=== PATIENT | male | born 1960 | race African-American/Black ===

== ENCOUNTER → 2017-01-11 07:36 | Outpatient (CLI) | payer BC, MEDICARE | END | disposition home or self-care (01) | LOC: D.NM 07:36 → D.US 08:15 | DX: D35.1 Benign neoplasm of parathyroid gland (principal); E83.52 Hypercalcemia; R97.0 Elevated carcinoembryonic antigen [CEA] ==

== ENCOUNTER 2020-07-08 14:08 | Inpatient (IN) | payer OTHER, MEDICAID ==
[~2020-07-08] VITALS: Ht 175.3 cm; Wt 100.0 kg
[2020-07-08 15:09] LABS: BASOPHILS 0.1 % (0-2); EOSINOPHILS 0 % (0-7); HEMATOCRIT 27.6 % (42.0-54.0); HEMOGLOBIN 8.5 g/dL (13.5-17.5); IMMATURE GRANULOCYTES 0.5 % (0-5); LYMPHOCYTES 3.5 % (15-50); MCH 21.5 pg (26.0-34.0); MCHC 30.8 g/dL (31.0-37.0); MCV 69.9 fL (80.0-100.0); MEAN PLATELET VOLUME 9.3 fL (7.4-10.4); MONOCYTES 2.6 % (2-11); NEUTROPHILS 93.3 % (40-80); PLATELET COUNT 270 10x3/uL (130-400); RBC 3.95 10x6/uL (4.20-6.10); RDW 18.3 % (11.5-14.5); WBC 18.2 10x3/uL (4.8-10.8)
[2020-07-08 15:18] LABS: CALCIUM 7.1 mg/dL (8.5-10.1)
[2020-07-08 17:38] LABS: ALBUMIN 2.6 g/dL (3.4-5.0); BILIRUBIN - TOTAL 0.44 mg/dL (0.2-1.3); PROTEIN - SERUM 6.1 g/dL (6.4-8.2)
--- NOTE | 2020-07-08 19:46 | NUR ---
PT FAMILY MEMBER BROUGHT TO ROOM. INFO WAS AQUIRED FROM SILVINA WHO LIVES IN HOME. PT IN DIALYSIS AT THIS TIME.
--- NOTE | 2020-07-08 23:05 | NUR ---
PT ARRIVED TO FLOOR VIA WHEELCHAIR FROM DIAYLISIS. A/O X4 BP-177/88 OTHERWISE STABLE VITALS. RR EVEN AND UNLABORED. CALLED TONY IRENE ORDER TO REESTABLISH APRESOLINE AND TRAMADOL. PT DAUGHTER AT BEDSIDE WHO DRESSES LEFT ELBO EACH DAY. PT HAVING SANDWHICH. PT HAS LEFT SIDE FISTULA BRUIT AND THRILL AND OL RIGHT SIDE. TONY IRENE STSTES NO NEED FOR IV. BED LOW CALL LIGHT WITHIN REACH. WILL CONTINUE TO MONITOR.
[2020-07-08] MEDS ORDERED: CATAPRES0.1 MG PO (23:58)
[2020-07-08] MEDS ORDERED: OXYCODONE HCL5 M1 PO (23:59)
[2020-07-09] VITALS: BP 187/95
[2020-07-09 04:00] VITALS: BP 169/87
[2020-07-09] MEDS ORDERED: FUROSEMIDE40 MG PO (06:23)
[2020-07-09] MEDS ORDERED: COLACE100 MG PO (06:24)
[2020-07-09] MEDS ORDERED: SODIUM BICARBO325 MG PO (06:25)
[2020-07-09] MEDS ORDERED: CALAN SR240 MG PO (06:28)
[2020-07-09] MEDS ORDERED: ASPIRIN325 MG PO (06:28)
[2020-07-09] MEDS ORDERED: SENSIPAR30 MG PO (06:29)
[2020-07-09] MEDS ORDERED: FERROUS SULFAT325 MG PO (06:30)
--- NOTE | 2020-07-09 07:20 | NUR ---
RECIEVE REPORT. ALERT AND ORIENTED X4. SITTING UP IN BED. AT BEDSIDE. NO SIGNS OF DISTRESS. CONTINUE PLAN OF CARE AND SAFETY PRECAUTIONS.
[2020-07-09 08:00] VITALS: BP 146/75
[2020-07-09 08:24] LABS: BASOPHILS 0.1 % (0-2); EOSINOPHILS 0 % (0-7); HEMATOCRIT 26.8 % (42.0-54.0); HEMOGLOBIN 8.1 g/dL (13.5-17.5); IMMATURE GRANULOCYTES 0.7 % (0-5); LYMPHOCYTES 4.9 % (15-50); MCH 21.1 pg (26.0-34.0); MCHC 30.2 g/dL (31.0-37.0); MCV 69.8 fL (80.0-100.0); MONOCYTES 6.3 % (2-11); PLATELET COUNT 266 10x3/uL (130-400); RBC 3.84 10x6/uL (4.20-6.10); RDW 18.3 % (11.5-14.5)
[2020-07-09 08:25] LABS: WBC 12.2 10x3/uL (4.8-10.8)
[2020-07-09 09:12] LABS: HEPATITIS C ANTIBODY 0.1 S/CO RAT (0.0-0.9)
[2020-07-09 09:15] LABS: ANION GAP 15.7 mmol/L (8-16); CARBON DIOXIDE 26.6 mmol/L (21.0-32.0); CREATININE - SERUM 3.9 mg/dL (0.6-1.3); PHOSPHOROUS 3.9 mg/dL (2.5-4.9); POTASSIUM - SERUM 4.3 mmol/L (3.5-5.1)
[2020-07-09 09:26] LABS: CALCIUM 6.9 mg/dL (8.5-10.1)
[2020-07-09 11:21] VITALS: BMI 32.5
[2020-07-09 12:03] VITALS: BP 112/54
[2020-07-09 13:13] VITALS: BP 146/75; Ht 175.3 cm; Wt 100.0 kg
[2020-07-09 18:14] LABS: BILIRUBIN NEGATIVE (NEGATIVE); KETONE NEGATIVE (NEGATIVE); NITRITE NEGATIVE (NEGATIVE); UROBILINOGEN NORMAL (NORMAL)
--- NOTE | 2020-07-09 19:00 | NUR ---
PT HAS FAMILY THAT ARE SEEING TO MANY OF HIS NEEDS BED LOW AND LOCKED CALL LIGHT IS IN REACH
[2020-07-09 20:00] VITALS: BP 146/81
[2020-07-10] VITALS: BP 111/72
[2020-07-10 04:00] VITALS: BP 140/76
[2020-07-10 06:30] LABS: % SATURATION 10 % (15-55); IRON 9 ug/dl (35-150); TOTAL IRON BIND CAPACITY 85 ug/dl (260-445); UNSAT IRON BIND CAPACITY 76 ug/dl (150-375)
[2020-07-10 06:58] LABS: ALBUMIN 2.2 g/dL (3.4-5.0); ANION GAP 14.7 mmol/L (8-16); BILIRUBIN - TOTAL 0.57 mg/dL (0.2-1.3); CARBON DIOXIDE 25.7 mmol/L (21.0-32.0); CREATININE - SERUM 4.7 mg/dL (0.6-1.3); PHOSPHOROUS 4.1 mg/dL (2.5-4.9); POTASSIUM - SERUM 4.4 mmol/L (3.5-5.1); PROTEIN - SERUM 5.3 g/dL (6.4-8.2)
--- NOTE | 2020-07-10 07:20 | NUR ---
RECIEVE REPORT. ALERT AND ORIENTED X4. SITTING UP IN BED. FAMILY AT BEDSIDE. DENIES ANY NEEDS. NOTIFY OF CA 6.4. CONTINUE PLAN OF CARE AND SAFETY PRECAUTIONS.
[2020-07-10 07:32] LABS: CALCIUM 6.5 mg/dL (8.5-10.1)
[2020-07-10 09:39] VITALS: BP 154/77
[2020-07-10 16:00] VITALS: BP 147/81
--- NOTE | 2020-07-10 18:11 | MORECARE ---
CASE MANAGEMENT DISCHARGE SUMMARY PATIENT: JOHANNE KAY UNIT: [id number] ADM DATE: 07/08/20 AGE: 60 : 64 SEX: M ROOM/BED: D.2103 AUTHOR: MCKAY KONG PHYSICIAN: REFERRING PHYSICIAN: SHANNON PRADO DO DATE OF SERVICE: 07/10/20 Discharge Plan Patient Name: JOHANNE KAY Facility: [facility]:[place] : 1960 Planned Disposition: Home with Hospice Anticipated Discharge Date: 07/11/20 Discharge Date: Expected LOS: 3 Initial Reviewer: [email or web address] Initial Review Date: 07/08/2020 Generated: 07/10/20 7:11 pm Comments DCP- Discharge Planning Updated by [email or web address]: Zonia Mejia on 07/10/20 5:[address] CM contacted Christiano with [facility], verbal report given, faxed required order to [phone]. A public relations representative will call the patient 07/11 to arrange an appointment time. Nursing and community life director have been notified of same. CM met with patient and daughter, Liliana Kay ([phone]) regarding request for hospice. Patient's choice is [facility] ([phone]). EDVIN signed per daughter, patient states he is in agreement with this. No other needs voiced at this time. External Providers External Provider: [facility]provides [facility] Next Contact Date: Service Request Date: Service Type: Resolution: Reviewer: Comments: Coverage Notice Reviewer: [id number] - Zonia Mejia Notice Issued Date-Time: 07/10/2020 17:31 Notice Type: Patient Choice Letter Notice Delivered To: Family Member Relationship to Patient: Daughter Line Runner Name: Liliana Kay Delivery Method: HAND - Hand Delivered Shauna Days: Prior Verbal Notification: Recipient Understood Notice: Yes Recipient Signature: Yes Med Rec Note Co-signed by Attending: Coverage Notice Comment: Patient choice for [facility] signed by daughterLiliana. Original to patient and copy to chart. Patient Name: JOHANNE KAY Page [phone] at 1811 All edits/amendments must be made on the electronic document DICTATION DATE: 07/10/201810 TIRE MOLDER: OMKAR 07/10/201810 RPT#: [id number] DC DATE: STATUS: ADM IN [facility] [address] [place] [address] END OF REPORT
[2020-07-10 20:00] VITALS: BP 136/78
--- NOTE | 2020-07-10 20:00 | NUR ---
REPORT RECEIVED, WILL CONT POC. PT UP IN BED WITH DAUGHTER AT BEDSIDE. PT REPORTS LEFT ELBOW WOUND DUE TO GOUT THAT DAUGHTER DRESSES TWICE A DAY. A&O, NO S/S OF DISTRESSED OBSERVED. RR EVEN AND UNLABORED ON RA. PT REQUESTS SANDWICH AND DRINK, BROUGHT TO BEDISDE. PT DENIES OTHER NEEDS AT THIS TIME. CALL LIGHT IN REACH, BED LOCKED AND LOWERED. ASSESSMENT COMPLETED AT THIS TIME. WILL CONT TO MONITOR.
[2020-07-11] VITALS: BP 126/72
[2020-07-11 04:00] VITALS: BP 142/76
--- NOTE | 2020-07-11 04:29 | NUR ---
I have reviewed this patient and I concur with the Shift Assessment completed by the Licensed Practical Nurse today this shift.
[2020-07-11 05:17] LABS: CALCIUM 6.9 mg/dL (8.5-10.1); CARBON DIOXIDE 27.1 mmol/L (21.0-32.0); CREATININE - SERUM 5.2 mg/dL (0.6-1.3); MAGNESIUM - SERUM 2.4 mg/dL (1.8-2.4); PHOSPHOROUS 4.7 mg/dL (2.5-4.9); POTASSIUM - SERUM 4.1 mmol/L (3.5-5.1)
[2020-07-11 05:49] LABS: BASOPHILS 0.1 % (0-2); EOSINOPHILS 0 % (0-7); HEMATOCRIT 23.7 % (42.0-54.0); IMMATURE GRANULOCYTES 0.3 % (0-5); LYMPHOCYTES 4.8 % (15-50); MCH 21.8 pg (26.0-34.0); MCHC 31.2 g/dL (31.0-37.0); MCV 69.7 fL (80.0-100.0); MONOCYTES 3.5 % (2-11); NEUTROPHILS 91.3 % (40-80); RDW 17.7 % (11.5-14.5); WBC 12.3 10x3/uL (4.8-10.8)
[2020-07-11 06:13] LABS: HEMOGLOBIN 7.4 g/dL (13.5-17.5); PLATELET COUNT 176 10x3/uL (130-400)
--- NOTE | 2020-07-11 06:22 | NUR ---
RECEIVED CALL FROM LAB, CRITICAL HGB OF 7.4. NOTIFIED MD EVE NURSE OF CRITICAL. NO NEW ORDERS.
--- NOTE | 2020-07-11 07:20 | NUR ---
WALKING ROUNDS COMPLETE, PT RESTING IN BED, NO NEEDS VOICED AT THIS TIME, WILL MONITOR
--- NOTE | 2020-07-11 08:20 | NUR ---
PT TOOK AM MEDS WITHOUT DIFFIUCLTY, PT DENIES ANY OTHER NEEDS AT THIS TIME
[2020-07-11 09:32] VITALS: BP 119/65
--- NOTE | 2020-07-11 09:45 | NUR ---
Nutrition Follow-up: Per MD note, pt declined CUSTOMER SUPPORT TECHNICIAN and wants to focus on conservative mngt. Has agreed to go home with home hospice; hospice consult pending. Diet: Renal PO intake: 50% avg x 6 meals Wt: 220# (07/09) Labs noted: K+ 4.1, Glu 125, Ca 6.9, PO4 4.7 Meds noted: Ferrlecit, Prednisone, Protonix, Calcitriol -Encourage PO intake and honor food preferences within diet restrictions. -Monitor wt. -RD following.
--- NOTE | 2020-07-11 11:58 | NUR ---
PT RESTING AND TALKING WITH DAUGHTER AND HOSPICE NURSE
[2020-07-11 13:55] VITALS: BP 119/64
--- NOTE | 2020-07-11 14:06 | MORECARE ---
CASE MANAGEMENT DISCHARGE SUMMARY PATIENT: JOHANNE KAY UNIT: [id number] ADM DATE: 07/08/20 AGE: 60 : 64 SEX: M ROOM/BED: D.2103 AUTHOR: LUANN,DOC PHYSICIAN: REFERRING PHYSICIAN: SHANNON PRADO DO DATE OF SERVICE: 07/11/20 Discharge Plan Patient Name: JOHANNE KAY Facility: [facility]:[place] : 1960 Planned Disposition: Home with Hospice Anticipated Discharge Date: 07/11/20 Discharge Date: Expected LOS: 3 Initial Reviewer: [id number] Initial Review Date: 07/08/2020 Generated: 07/11/20 3:05 pm Comments DCP- Discharge Planning Updated by [id number]: Donna Díaz on 07/11/20 12:[address] Ryan with [facility] visited with patient and his sister today. They will admit him to [facility] when he is discharged home. Ryan states they will have all equipment needed delivered today. States his family will transport him home. CM will continue to follow and assist with discharge planning/needs. DCP- Discharge Planning Updated by [id number]: Zonia Mejia on 07/10/20 5:[address] JOHN contacted Christiano with [facility], verbal report given, faxed required order to [phone]. A district representative will call the patient 07/11 to arrange an appointment time. Nursing and community support specialist have been notified of same. CM met with patient and daughter, Liliana Kay ([phone]) regarding request for hospice. Patient's choice is [facility] ([phone]). EDVIN signed per daughter, patient states he is in agreement with this. No other needs voiced at this time. Coverage Notice Reviewer: [id number] - Zonia Mejia Notice Issued Date-Time: 07/10/2020 17:31 Notice Type: Patient Choice Letter Notice Delivered To: Family Member Relationship to Patient: Daughter Registrar Assistant Name: Liliana Kay Delivery Method: HAND - Hand Delivered Shauna Days: Prior Verbal Notification: Recipient Understood Notice: Yes Recipient Signature: Yes Med Rec Note Co-signed by Attending: Coverage Notice Comment: Patient choice for [facility] signed by daughter, Liliana Kay. Original to patient and copy to chart. Last DP export: 07/10/20 5:11 pm Patient Name: JOHANNE KAY Page [phone] at 1406 All edits/amendments must be made on the electronic document DICTATION DATE: 07/11/20 140 DENTAL MANAGER: OMKAR 07/11/20 140 RPT#: [id number] DC DATE: STATUS: ADM IN [facility] [address] [place] [address] END OF REPORT
[2020-07-11 18:10] VITALS: BP 139/78
[2020-07-11 20:00] VITALS: BP 148/83
[2020-07-12] VITALS: BP 145/79
[2020-07-12 04:00] VITALS: BP 164/87
--- NOTE | 2020-07-12 04:39 | NUR ---
ENTERED PT ROOM THIS AM ANSWERING CALL LIGHT. PT STATES AID CAME IN TO CHECK HIM AND NEVER RETURNED. AID STATES PT WAS NOT WET AT TIME. MYSELF AND AID CHANGED PT'S BEDDING. PT THEN TELLS US TO GET OUT OF ROOM THAT WE ARE NOT DOING ANYTHING FOR HIM. OFFERED PT BATH, DRINK, WARM BLANKET, ASKED IF IN PAIN AND PT REFUSED TO SPEAK. WILL CONTINUE TO MONITOR.
--- NOTE | 2020-07-12 04:58 | NUR ---
CARLOS ALBERTO NURSE ANSWERED PT CALL LIGHT. PT TELLS YOSELIN CARCAMO THAT MYSELF AND AID JULI CALLED HIM A "FAT ASS MOTHER FUCKER" WE WERE CHANGING PT BED. PT STATES WE THOUGHT HE WAS SLEEPING. DURING BED CHANGE PT WAS ALERT AND ORIENTED X4 WAS ABLE TO COMMUNICATE THAT HIS HAND WAS SORE TO BECARFUL. PT WAS ABBLE TO GRAB RAILING AFTER DIRECTION FROM MYSELF TO GO FROM LEFT TO RIGHT HE HELPED PULL HIMSELF. WE THEN PULLED HIM UP IN BED HE CROSSED HIS ARMS. RUFUS IN RT WAS OUTSIDE THE DOOR DURING THIS TIME. THIS NURSE INFORMED CHARGE AND SAMPLE PREPARATION SUPERVISOR ID ALLEGED INCIDENT. WILL CONTINUE TO MONITOR.
--- NOTE | 2020-07-12 07:30 | NUR ---
UPON ENTERING ROOM FOR ASSESSMENT AND INTRODUCING MYSELF NURSE FOR THE DAY, PATIENT STATED HE DIDN'T WANT HIS NURSE, HE WANTED TO SEE THE CHARGE NURSE OR MAIN NURSE FOR THE FLOOR. I ASK IF THERE WAS A PROBLEM TO WHICH HE STATED THE NIGHT NURSE CALLED HIM A BIG FAT ASS AND SAID THEY WERE NOT GOING TO DO ANYTHING FOR HIM AND NOBODY CAME AND TALKED TO HIM LAST NIGHT. I TOLD HIM I WOULD SEND THE STONE DRESSER IN AND SPOKE WITH BHAVESH SALCIDO.
--- NOTE | 2020-07-12 07:48 | NUR ---
CALLED TO ROOM WITH COMPLAINT THAT HE WAS NOT "TOUCHED LAST NIGHT FOR ANY NEEDS" I REVIEWED THE NOTE WITH PATIENT. SON IS IN THE ROOM. PATIENT IS ADAMENT THAT HE WAS NOT HELPED LAST NIGHT. I ASKED IF THERE WAS ANYTHING THAT I COULD DO AT THIS TIME TO ASSIST HIM AND HE SAID NO. I TOLD HIM THAT HE WILL GET A BATH AND LINEN CHANGE TODAY. AGAIN, I ASKED HIM IF THERE WAS ANYTHING I COULD DO OR ANSWER ANY QUESTIONS. BOTH PATIENT AND SON STATE NO.
--- NOTE | 2020-07-12 08:18 | NUR ---
SON REQUESTED PATIENT BE CLEANED FROM INCONTINT URINE, AND WOUND ON LEFT ELBOW DRESSED, SUPPLIES GATHERED AND RADHAMES AND MYSELF ENTERED ROOM. DRESSING CHANGED TO ELBOW AND STARTED TO CLEAN PATIENT AND CHANGE BED AT WHICH TIME PATIENT STARTED YELLING GET THEM OUT OF MY ROOM, GET THEM OUT OF HERE. DESTINI ATTEMTED TO CALM FATHER AND TELL HIM WE NEEDED TO CLEAN HIM UP. PATIENT REFUSED TO TURN OR LET US TOUCH HIM IN THE BED. SON RAISED HIS FINGER TO HIS HED AND MOUTHED SOMETHING TO WHICH IM NOT SURE AND SAID PLEASE WAIT FOR MY SISTER AND LEAVE HIM WET. CHANGE HIM WHEN MY SISTER GETS HER. WE WERE LEAVING THE ROOM HE SAID TO ME, IM SORRY.
[2020-07-12 10:01] VITALS: BP 179/88
[2020-07-12] MEDS ORDERED: LASIX80 MG PO (10:27)
[2020-07-12] MEDS ORDERED: PREDNISONE20 MG PO (10:32)
[2020-07-12] MEDS ORDERED: PROTONIX40 MG PO (10:32)
[2020-07-12] MEDS ORDERED: CATAPRES0.1 MG PO (10:32)
[2020-07-12] MEDS ORDERED: CALAN SR240 MG PO (10:32)
[2020-07-12] MEDS ORDERED: IMURAN50 MG PO (10:32)
--- NOTE | 2020-07-12 11:09 | NUR ---
SALINE LOCK TAKEN OUT AND PRESSURE APPLIED D/T BLEEDING. DRESSING APPLIED WHEN BLEEDING STOPPED. DISCHARGE PAPERS DISCUSSED WITH SON AND [facility] CALLED TO ARRANGE AMBULANCE FOR HOME.
--- NOTE | 2020-07-12 11:29 | MORECARE ---
CASE MANAGEMENT DISCHARGE SUMMARY PATIENT: JOHANNE KAY UNIT: [id number] ADM DATE: 07/08/20 AGE: 60 : 64 SEX: M ROOM/BED: D.2103 AUTHOR: LUANN,DOC PHYSICIAN: REFERRING PHYSICIAN: SHANNON PRADO DO DATE OF SERVICE: 07/12/20 Discharge Plan Patient Name: JOHANNE KAY Facility: [facility]:[place] : 1960 Planned Disposition: Home with Hospice Anticipated Discharge Date: 07/11/20 Discharge Date: Expected LOS: 3 Initial Reviewer: [id number] Initial Review Date: 07/08/2020 Generated: 07/12/20 12:29 pm Comments DCP- Discharge Planning Updated by [id number]: Donna Díaz on 07/12/20 10:[address] Discharging today via ambulance, brother at bedside. [facility] notified and DC clinical faxed. DC home with hospice. DCP- Discharge Planning Updated by [id number]: Donna Díaz on 07/11/20 12:[address] Ryan with [facility] visited with patient and his sister today. They will admit him to [facility] when he is discharged home. Ryan states they will have all equipment needed delivered today. States his family will transport him home. CM will continue to follow and assist with discharge planning/needs. DCP- Discharge Planning Updated by [email or web address]: Zonia Mejia on 07/10/20 5:[address] CM contacted Christiano with [facility], verbal report given, faxed required order to [phone]. A medical claims representative will call the patient 07/11 to arrange an appointment time. Nursing and nuclear unit operator have been notified of same. CM met with patient and daughter, Liliana Kay ([phone]) regarding request for hospice. Patient's choice is [facility] ([phone]). EDVIN signed per daughter, patient states he is in agreement with this. No other needs voiced at this time. Coverage Notice Reviewer: [id number] - Zonia Mejia Notice Issued Date-Time: 07/10/2020 17:31 Notice Type: Patient Choice Letter Notice Delivered To: Family Member Relationship to Patient: Daughter Perforator Operator Name: Liliana Kay Delivery Method: HAND - Hand Delivered Shauna Days: Prior Verbal Notification: Recipient Understood Notice: Yes Recipient Signature: Yes Med Rec Note Co-signed by Attending: Coverage Notice Comment: Patient choice for [facility] signed by daughter, Liliana Kay. Original to patient and copy to chart. Last DP export: 07/11/20 1:06 pm Patient Name: JOHANNE KAY Page [phone] at 1129 All edits/amendments must be made on the electronic document DICTATION DATE: 07/12/20 112 NASCAR RACER: OMKAR 07/12/20 1129 RPT#: [id number] DC DATE: STATUS: ADM IN [facility] [address] [place] [address] END OF REPORT
--- NOTE | 2020-07-12 11:45 | NUR ---
[facility] HERE AND PATIENT HOME VIA STRETCHER, HOSPICE CALLED TO REPORT ABOVE.
--- NOTE | 2020-07-16 16:04 | MORECARE ---
CASE MANAGEMENT DISCHARGE SUMMARY PATIENT: JOHANNE KAY UNIT: [id number] ADM DATE: 07/08/20 AGE: 60 : 64 SEX: M ROOM/BED: D.2103 AUTHOR: LUANN,DOC PHYSICIAN: REFERRING PHYSICIAN: SHANNON PRADO DO DATE OF SERVICE: 07/16/20 Discharge Plan Patient Name: JOHANNE KAY Facility: [facility]:[place] : 1960 Planned Disposition: Home with Hospice Anticipated Discharge Date: 07/11/20 Discharge Date: 07/12/2020 Expected LOS: 3 Initial Reviewer: [email or web address] Initial Review Date: 07/08/2020 Generated: 07/16/20 5:03 pm Comments DCP- Discharge Planning Updated by [email or web address]: Donna Díaz on 07/12/20 10:[address] Discharging today via ambulance, brother at bedside. [facility] notified and DC clinical faxed. DC home with hospice. DCP- Discharge Planning Updated by [id number]: Donna Díaz on 07/11/20 12:[address] [place] with [facility] visited with patient and his sister today. They will admit him to [facility] when he is discharged home. Ryan states they will have all equipment needed delivered today. States his family will transport him home. CM will continue to follow and assist with discharge planning/needs. DCP- Discharge Planning Updated by [email or web address]: Zonia Mejia on 07/10/20 5:[address] CM contacted Christiano with [facility], verbal report given, faxed required order to [phone]. A senior human resources representative will call the patient 07/11 to arrange an appointment time. Nursing and assembler unit have been notified of same. CM met with patient and daughter, Liliana Kay ([phone]) regarding request for hospice. Patient's choice is [facility] ([phone]). EDVIN signed per daughter, patient states he is in agreement with this. No other needs voiced at this time. Coverage Notice Reviewer: [email or web address] - Zonia Mejia Notice Issued Date-Time: 07/10/2020 17:31 Notice Type: Patient Choice Letter Notice Delivered To: Family Member Relationship to Patient: Daughter Automotive Service Writer Name: Liliana Kay Delivery Method: HAND - Hand Delivered Shauna Days: Prior Verbal Notification: Recipient Understood Notice: Yes Recipient Signature: Yes Med Rec Note Co-signed by Attending: Coverage Notice Comment: Patient choice for [facility] signed by daughter, Liliana Kay. Original to patient and copy to chart. Last DP export: 07/12/20 10:29 am Patient Name: JOHANNE KAY Page [phone] at 1604 All edits/amendments must be made on the electronic document DICTATION DATE: 07/16/20 1603 RN SEXUAL ASSAULT: OMKAR 07/16/20 1603 RPT#: [id number] DC DATE:07/12/20 STATUS: DIS IN [facility] [address] [place] [address] END OF REPORT
== END 2020-07-12 11:45 | disposition home health service (06) | DRG 640 ==
LOC: D.ER 14:08 → D.M2 19:36 → D.ICU 20:35 → D.M2 20:43
PROVIDERS: Internal Medicine Nephrology; ADMIT Internal Medicine; ATTEND Internal Medicine
DX: E87.70 Fluid overload, unspecified (principal); D61.89 Other specified aplastic anemias and other bone marrow failure syndromes; I12.0 Hypertensive chronic kidney disease with stage 5 chronic kidney disease or end stage renal disease; N18.5 Chronic kidney disease, stage 5; Z94.0 Kidney transplant status; D63.1 Anemia in chronic kidney disease; D72.829 Elevated white blood cell count, unspecified